=== PATIENT | male | born 1990 | race Two or more races ===

== ENCOUNTER 2019-05-06 15:38 | Emergency (ER) | payer OTHER ==
[~2019-05-06] VITALS: Ht 167.6 cm; Wt 68.4 kg
[2019-05-06 15:40] VITALS: BP 116/74
[2019-05-06] MEDS ORDERED: LIDOCAINE-MPF 1%, 5ML ONE ×2 (15:51→16:14)
[2019-05-06] MEDS ORDERED: BUPIVACAINE 0.25% ONE (15:52)
--- NOTE | 2019-05-06 16:05 | NUR ---
RME: PA at bedside for wound closure
[2019-05-06] MEDS ORDERED: DIPH,PERTUSS(ACELL),TET VAC/PF 0.5 ML IM-VACC ONE (16:30)
[2019-05-06] MEDS ORDERED: BUPIVACAINE 0.25% INFIL ONE (16:30)
[2019-05-06] MEDS ORDERED: LIDOCAINE 1%, 10ML INFIL ONE (16:30)
[2019-05-06] MEDS ORDERED: BACITRACIN ZINC OINT 500U/GM, 0.9 GM ONE (16:43)
[2019-05-06] MEDS ORDERED: PLEASE ENTER ALLERGIES MC SCH (17:00)
== END 2019-05-06 17:35 | disposition home or self-care (01) ==
LOC: ED 17:29
DX: S61.411A Laceration without foreign body of right hand, initial encounter (principal); S61.212A Laceration without foreign body of right middle finger without damage to nail, initial encounter; S61.214A Laceration without foreign body of right ring finger without damage to nail, initial encounter; W26.9XXA Contact with unspecified sharp object(s), initial encounter; Y93.89 Activity, other specified; Y92.69 Other specified industrial and construction area as the place of occurrence of the external cause; Y99.8 Other external cause status
CPT/HCPCS: 12042; 90471; 90715; 99285; J3490